=== PATIENT | female | born 1970 | race Caucasian/White ===

== ENCOUNTER 2019-06-03 14:04 | Inpatient (IN) | payer OTHER ==
[~2019-06-03] VITALS: Ht 172.7 cm; Wt 61.2 kg
--- NOTE | 2019-06-03 14:26 | NUR ---
PTE ALERTA Y ORIENTADA X 3 ESFERAS, REFIERE DOLOR ABDOMINAL HACE 2 PLEITEZ APROXIMADAMENTE Y DIARREAS EN EL RIC DE [place]. HOY INDICA NAUSEAS. SE UBICA EN AREA DE OBSERVACION.
--- NOTE | 2019-06-03 16:52 | NUR ---
PACIENTE ALERTA Y ORIENTADA POR CORBY ESFERAS. SE ORIENTA A PACIENTE SOBRE PROCEDIMIENTO Y TX, REFIERE ENTENDER. EXTRAE MUESTRAS DE LABORATOIRO CON MEDIDAS ASEPTICAS Y SE ADMINISTRA MEDICAMENTOS KARLOS ORDEN MEDICA.
== END 2019-06-04 11:46 | disposition home or self-care (01) | DRG 343 ==
LOC: ER 14:04 → SEC-K 20:59 → O/R 21:40 → SURH 23:57
PROVIDERS: ADMIT Surgery
PROC: BW21ZZZ Computerized Tomography (CT Scan) of Abdomen and Pelvis (ICD-10-PCS; 2019-06-03)
PROC: 0DTJ4ZZ Resection of Appendix, Percutaneous Endoscopic Approach (ICD-10-PCS; principal; 2019-06-03 21:00)
DX: K36 Other appendicitis (principal)